=== PATIENT | female | born 1955 | race Caucasian/White ===

== ENCOUNTER 2024-04-14 13:43 | Inpatient (IN) | payer OTHER ==
[~2024-04-14] VITALS: Ht 160 cm; Wt 61.3 kg
[2024-04-14 14:09] LABS: APPEARANCE,URINE HAZY (CLEAR); BILIRUBIN,URINE NEGATIVE (NEGATIVE); COLOR,URINE YELLOW (YELLOW); GLUCOSE, URINE (UA) NEGATIVE (NEGATIVE); KETONES,URINE NEGATIVE (NEGATIVE); LEUKOCYTE ESTERASE ,URINE LARGE (NEGATIVE); NITRATE,URINE NEGATIVE (NEGATIVE); OCCULT BLOOD,URINE TRACE (NEGATIVE); PH,URINE 5.5 (5.0-8.0); PROTEIN,URINE 30-70 mg/dL (NEGATIVE); SPECIFIC GRAVITIY, URINE 1.017 (1.003-1.030); UROBILINOGEN,URINE <=1.0 mg/dL (<=1.0)
[2024-04-14 14:23] LABS: BACTERIA,URINE Many /HPF (None Seen); RENAL EPITHELIAL CELLS,URINE Few /LPF (None Seen); SQUAMOUS EPITHELIAL CELL,UR Many /LPF (None Seen)
[2024-04-14] MEDS: SODIUM CHLORIDE 0.9% 1,850 ML IV ONE (15:29)
[2024-04-14] MEDS: CefTRIAXone 1 GM/DEXTROSE 50 ML IV ONE (15:30)
[2024-04-14 15:40] LABS: BASOPHILS % (AUTO) 1.2 % (0.0-2.0); EOSINOPHILS % (AUTO) 2.3 % (1.0-6.0); HEMATOCRIT 38.8 % (36-46); HEMOGLOBIN 13.6 g/dL (12.0-16.0); LYMPHOCYTES # (AUTO) 1.8 K/uL (1.0-4.8); LYMPHOCYTES % (AUTO) 25.7 % (22.0-44.0); MEAN CORPUSCULAR HEMOGLOBIN 33.6 pg (26.0-34.0); MEAN CORPUSCULAR HGB CONC 34.9 G/dL (31.0-37.0); MEAN CORPUSCULAR VOLUME 96 fL (80-100); MONOCYTES # (AUTO) 0.7 K/uL (0.1-1.0); MONOCYTES % (AUTO) 10.4 % (2.0-9.0); NEUTROPHILS # (AUTO) 4.2 K/uL (1.8-7.7); NEUTROPHILS % (AUTO) 60.4 % (40.0-70.0); PLATELET COUNT (AUTO) 291 K/uL (150-450); RED BLOOD CELL COUNT(AUTO) 4.04 MIL/uL (4.00-5.20); RED CELL DISTRIBUTION WIDTH 12.9 % (11.5-14.5)
[2024-04-14 15:41] LABS: COVID AG,FIA SOURCE NASAL SWAB
[2024-04-14 15:52] LABS: PROTHROMBIN TIME 10.8 SEC (9.4-11.6)
[2024-04-14 15:58] LABS: LACTIC ACID 1.3 mmol/L (0.4-2.0); TROPONIN I-HIGH SENSITIVITY 10 ng/L (<51)
[2024-04-14 16:00] LABS: B-TYPE NATRIURETIC PEPTIDE 5 pg/mL (0-100)
[2024-04-14 16:08] LABS: ALANINE AMINOTRANSFERASE 25 U/L (12-78); ALBUMIN 3.7 g/dL (3.4-5.0); ALKALINE PHOSPHATASE 117 U/L (46-116); ANION GAP 7 mmol/L (8-16); ASPARTATE AMINOTRANSFERASE 27 U/L (15-37); BILIRUBIN,TOTAL 0.6 mg/dL (0.1-1.0); CALCIUM, TOTAL 8.5 mg/dL (8.8-10.5); CARBON DIOXIDE 31 mmol/L (22-29); CHLORIDE 90 mmol/L (98-107); CREATININE 1.52 mg/dL (0.60-1.30); GLOMERULAR FILTR. RATE CALC 34 mL/min (>60); GLUCOSE,RANDOM 78 mg/dL (70-110); SODIUM SERUM 128 mmol/L (136-145); UREA NITROGEN, BLOOD 13 mg/dL (7-18)
[2024-04-14 16:10] LABS: POTASSIUM 2.1 mmol/L (3.5-5.1)
[2024-04-14 16:21] LABS: SARS-COV2 (COVID) ANTIGEN,FIA Negative (Negative)
[2024-04-14] MEDS: POTASSIUM CHLORIDE 20 MEQ ER TABLET PO ONE ×2 (16:31→23:16)
[2024-04-14] MEDS: POTASSIUM CHL 10 MEQ/WATER 50 ML IV SCH (16:32)
[2024-04-14] MEDS: 0.9% SODIUM CHLORIDE 10 ML SYRINGE IVP PRN (16:44)
[2024-04-14 23:56] VITALS: BP 125/77; PULSE 57; RESP 19; TEMP 97.6; O2SAT 100
[2024-04-15] VITALS (7 sets, daily range): BP systolic 115–145; BP diastolic 53–65; PULSE 58–63; RESP 17–19; TEMP 97.4–98.3; O2SAT 97–100
[2024-04-15] MEDS ORDERED: INFLUENZA VIRUS VACCINE TVS (6MO+) 2024-25/PF 45 MCG/0.5 ML SYRINGE IM. ONE (00:15)
[2024-04-15 06:32] LABS: EOSINOPHILS % (AUTO) 4.4 % (1.0-6.0); HEMOGLOBIN 12.3 g/dL (12.0-16.0); LYMPHOCYTES # (AUTO) 1.3 K/uL (1.0-4.8); LYMPHOCYTES % (AUTO) 28.4 % (22.0-44.0); MEAN CORPUSCULAR HEMOGLOBIN 34.6 pg (26.0-34.0); MEAN CORPUSCULAR HGB CONC 36.1 G/dL (31.0-37.0); MEAN CORPUSCULAR VOLUME 96 fL (80-100); MONOCYTES # (AUTO) 0.6 K/uL (0.1-1.0); MONOCYTES % (AUTO) 12.8 % (2.0-9.0); NEUTROPHILS # (AUTO) 2.5 K/uL (1.8-7.7); NEUTROPHILS % (AUTO) 53.4 % (40.0-70.0); PLATELET COUNT (AUTO) 224 K/uL (150-450); RED BLOOD CELL COUNT(AUTO) 3.55 MIL/uL (4.00-5.20); RED CELL DISTRIBUTION WIDTH 13.3 % (11.5-14.5); WHITE BLOOD COUNT (AUTO) 4.6 K/uL (4.5-11.0)
[2024-04-15 07:00] LABS: CREATININE 1.15 mg/dL (0.60-1.30); POTASSIUM 3.3 mmol/L (3.5-5.1)
[2024-04-15] MEDS ORDERED: PANT-31 PO (12:12)
[2024-04-15] MEDS ORDERED: LOSA-382 PO (12:12)
[2024-04-15] MEDS ORDERED: ROSU20TA98 PO (12:12)
[2024-04-15] MEDS ORDERED: LEVO50 PO (12:12)
[2024-04-15] MEDS ORDERED: CLOP75TA60 PO (12:12)
[2024-04-15] MEDS ORDERED: METO-325 PO (12:12)
[2024-04-15] MEDS ORDERED: CHL25 PO (12:12)
[2024-04-15] MEDS ORDERED: ISOS60TA77 PO (12:12)
[2024-04-15] MEDS ORDERED: AMLO-257 PO (12:12)
[2024-04-15] MEDS ORDERED: ACETAMINOPHEN 325 MG TABLET PO PRN (12:15)
[2024-04-15] MEDS ORDERED: ONDANSETRON HCL 4 MG/2 ML VIAL IVP PRN (12:15)
[2024-04-15] MEDS: POTASSIUM CHLORIDE 10% 40 MEQ/30 ML LIQUID UDCUP PO ONE (12:52)
[2024-04-15] MEDS: ENOXAPARIN SODIUM 40 MG/0.4 ML PF SYRINGE SQ SCH (12:53)
[2024-04-15] MEDS: CefTRIAXone 1 GM/DEXTROSE 50 ML IV SCH (16:03)
[2024-04-15] MEDS ORDERED: SODIUM CHLORIDE 0.9% 250 ML IV ONE (16:16)
[2024-04-15] MEDS: PANTOPRAZOLE SODIUM 40 MG DR TABLET PO SCH (21:30)
[2024-04-15] MEDS: CLOPIDOGREL BISULFATE 75 MG TABLET PO SCH (21:30)
[2024-04-15] MEDS: ROSUVASTATIN CALCIUM 20 MG TABLET PO SCH (21:31)
[2024-04-15] MEDS: CHLORTHALIDONE 25 MG TABLET PO SCH (21:31)
[2024-04-15] MEDS: LOSARTAN POTASSIUM 50 MG TABLET PO SCH (21:34)
[2024-04-15] MEDS: ISOSORBIDE MONONITRATE 60 MG ER TABLET PO SCH (22:17)
[2024-04-15] MEDS: AmLODIPine BESYLATE 5 MG TABLET PO SCH (22:18)
[2024-04-15] MEDS: METOPROLOL SUCCINATE 50 MG ER TABLET PO SCH (22:18)
[2024-04-16 03:55] VITALS: BP 98/61; PULSE 61; RESP 18; TEMP 98; O2SAT 99
[2024-04-16 05:50] VITALS: BP 103/58; PULSE 56
[2024-04-16] MEDS: LEVOTHYROXINE SODIUM 50 MCG TABLET PO SCH (06:23)
[2024-04-16 06:41] LABS: BASOPHILS % (AUTO) 1.3 % (0.0-2.0); EOSINOPHILS % (AUTO) 4.9 % (1.0-6.0); HEMATOCRIT 34.9 % (36-46); HEMOGLOBIN 12.5 g/dL (12.0-16.0); LYMPHOCYTES # (AUTO) 1.9 K/uL (1.0-4.8); MEAN CORPUSCULAR HEMOGLOBIN 34.3 pg (26.0-34.0); MEAN CORPUSCULAR HGB CONC 35.8 G/dL (31.0-37.0); MEAN CORPUSCULAR VOLUME 96 fL (80-100); MONOCYTES # (AUTO) 0.5 K/uL (0.1-1.0); MONOCYTES % (AUTO) 9.5 % (2.0-9.0); NEUTROPHILS # (AUTO) 2.2 K/uL (1.8-7.7); NEUTROPHILS % (AUTO) 45.3 % (40.0-70.0); PLATELET COUNT (AUTO) 239 K/uL (150-450); RED BLOOD CELL COUNT(AUTO) 3.64 MIL/uL (4.00-5.20)
[2024-04-16 07:21] LABS: CALCIUM, TOTAL 8.4 mg/dL (8.8-10.5); CREATININE 1.03 mg/dL (0.60-1.30); POTASSIUM 3.6 mmol/L (3.5-5.1)
[2024-04-16 08:09] VITALS: BP 107/56; PULSE 62; RESP 18; TEMP 97.5; O2SAT 96
[2024-04-16 11:37] VITALS: BP 94/59; PULSE 64; RESP 16; TEMP 98.1; O2SAT 100
[2024-04-16 15:12] VITALS: BP 115/65; PULSE 66; RESP 18; TEMP 97.8; O2SAT 97
[2024-04-16 19:53] VITALS: BP 106/63; PULSE 65; RESP 18; TEMP 97.3; O2SAT 97
[2024-04-17 08:08] VITALS: BP 129/68; PULSE 57; RESP 18; TEMP 98.1; O2SAT 97
[2024-04-17] MEDS ORDERED: CHL25 PO (09:20)
[2024-04-17] MEDS ORDERED: METO-325 PO (09:20)
[2024-04-17] MEDS ORDERED: CLOP75TA60 PO (09:20)
[2024-04-17] MEDS ORDERED: LOSA-382 PO (09:20)
[2024-04-17] MEDS ORDERED: PANT-31 PO (09:20)
[2024-04-17] MEDS ORDERED: BACTDSB PO (09:20)
[2024-04-17] MEDS ORDERED: AMLO-257 PO (09:20)
[2024-04-17] MEDS ORDERED: ROSU20TA98 PO (09:20)
[2024-04-17] MEDS ORDERED: LEVO50 PO (09:20)
[2024-04-17] MEDS ORDERED: ISOS60TA77 PO (09:20)
== END 2024-04-17 10:40 | disposition home or self-care (01) | DRG 640 ==
LOC: EDBD 13:50 → EMS 13:50 → EDH 16:56 → 5S 22:48
PROVIDERS: ADMIT Family Medicine; ATTEND Family Medicine
DX: E87.6 Hypokalemia (principal); N17.0 Acute kidney failure with tubular necrosis; N39.0 Urinary tract infection, site not specified; Z59.00 Homelessness unspecified; E87.1 Hypo-osmolality and hyponatremia; I11.0 Hypertensive heart disease with heart failure; Z20.822 Contact with and (suspected) exposure to COVID-19; I50.9 Heart failure, unspecified; E03.9 Hypothyroidism, unspecified; E78.5 Hyperlipidemia, unspecified; I25.10 Atherosclerotic heart disease of native coronary artery without angina pectoris
CPT/HCPCS: 71045; 80048; 80053; 81001; 83605; 83880; 84132; 84145; 84484; 85025; 85610; 87040; 87086; 93005; 93306; 97116; 97162; 99285; J0696; J1650; J3480; J7030; J7050; 36415-L1; 36415-TC